=== PATIENT | male | born 1965 | race Caucasian/White ===

== ENCOUNTER 2018-03-11 09:17 | Emergency (ER) | payer BC, OTHER ==
[2018-03-11 09:23] VITALS: BP 130/89; PULSE 76; TEMP 98.7; BMI 28.8
--- NOTE | 2018-03-11 09:36 | PDOC ---
History of Present Illness - General Chief Complaint: Abscess Boil Stated Complaint: ABSCESS BOIL Time Seen by Provider: 03/11/18 09:27 History Source: Patient Exam Limitations: No Limitations - History of Present Illness Initial Comments: 03/11/18 09:34 52 yr male with history of high cholesterol presents to ER with abscess to right buttock on and off since November. Pt was on many antibiotics with some relief. no fever no chills. pt works construction. Past History - Past Medical History Allergies/Adverse Reactions: Allergies Allergy/AdvReac Type Severity Reaction Status Date / Time No Known Allergies Allergy Verified 03/11/18 09:19 Home Medications: Ambulatory Orders NK [No Known Home Medication] 03/11/18 Anemia: No Asthma: No Cancer: No Cardiac Disorders: No CVA: No COPD: No CHF: No Dementia: No Diabetes: No GI Disorders: No Disorders: No HTN: No Hypercholesterolemia: Yes Liver Disease: No Seizures: No Thyroid Disease: No - Surgical History Abdominal Surgery: No Appendectomy: No Cardiac Surgery: No Cholecystectomy: No Lung Surgery: No Neurologic Surgery: No Orthopedic Surgery: No - Suicide/Smoking/Psychosocial Hx Smoking History: Never smoked Have you smoked in the past 12 months: No Information on smoking cessation initiated: No Hx Alcohol Use: No Drug/Substance Use Hx: No Substance Use Type: None Hx Substance Use Treatment: No Review of Systems - Review of Systems Able to Perform ROS?: Yes Is the patient limited Turkish proficient: No Integumentary: Yes: Symptoms Reported *Physical Exam - Vital Signs Last Vital Signs Temp Pulse Resp BP Pulse Ox 98.7 F 76 16 130/89 98 03/11/18 09:19 03/11/18 09:19 03/11/18 09:19 03/11/18 09:19 03/11/18 09:19 - Physical Exam General Appearance: Yes: Nourished, Appropriately Dressed HEENT: positive: EOMI, ANA CRISTINA Integumentary: positive: Other (right buttock inner aspect with drainaing 1cm abscess no surrounding erythema, no induration) Medical Decision Making - Medical Decision Making 03/11/18 16:27 cc: draining abscess / questionable anal fistula to the right buttock on and off for 3 months no fever no chills no abd pain pt here to see wound culture obtained pt transfered to main ER to be seen by . 03/11/18 16:29 *DC/Admit/Observation/Transfer Diagnosis at time of Disposition: Anal fistula - Discharge Dispostion Disposition: HOME Condition at time of disposition: Stable - Referrals Referrals: Laz Guardado MD [Staff Physician] - Ruddy Rodriguez MD [Primary Care Provider] - - Patient Instructions Printed Discharge Instructions: DI for Anal Fistula Additional Instructions: Please follow up with Dr. Guardado as an outpatient. - Post Discharge Activity
--- NOTE | 2018-03-11 10:04 | PDOC ---
History of Present Illness - General Chief Complaint: Abscess Boil Stated Complaint: ABSCESS BOIL Time Seen by Provider: 03/11/18 09:27 History Source: Patient Exam Limitations: No Limitations - History of Present Illness Initial Comments: 03/11/18 09:53 52 year old M c/ hx of HLD presents with "boil" on buttocks since November 2017. Dr. Laz Guardado (surgeon) here to evaluate patient at request of family member. Pt noted to have a continually draining abscess hear ~2 o'clock position ~2x2 cm. No fevers, chills. Able to move his bowels without difficulty. Past History - Past Medical History Allergies/Adverse Reactions: Allergies Allergy/AdvReac Type Severity Reaction Status Date / Time No Known Allergies Allergy Verified 03/11/18 09:19 Home Medications: Ambulatory Orders NK [No Known Home Medication] 03/11/18 Anemia: No Asthma: No Cancer: No Cardiac Disorders: No CVA: No COPD: No CHF: No Dementia: No Diabetes: No GI Disorders: No Disorders: No HTN: No Hypercholesterolemia: Yes Liver Disease: No Seizures: No Thyroid Disease: No - Surgical History Abdominal Surgery: No Appendectomy: No Cardiac Surgery: No Cholecystectomy: No Lung Surgery: No Neurologic Surgery: No Orthopedic Surgery: No - Suicide/Smoking/Psychosocial Hx Smoking History: Never smoked Have you smoked in the past 12 months: No Information on smoking cessation initiated: No Hx Alcohol Use: No Drug/Substance Use Hx: No Substance Use Type: None Hx Substance Use Treatment: No Review of Systems - Review of Systems Able to Perform ROS?: Yes Comments:: 03/11/18 10:10 GENERAL/CONSTITUTIONAL: No fever or chills. No weakness. HEAD, EYES, EARS, NOSE AND THROAT: No change in vision. No ear pain or discharge. No sore throat. CARDIOVASCULAR: No chest pain or shortness of breath. RESPIRATORY: No cough, wheezing, or hemoptysis. GASTROINTESTINAL: No nausea, vomiting, diarrhea or constipation. +buttocks abscess GENITOURINARY: No dysuria, frequency, or change in urination. MUSCULOSKELETAL: No joint or muscle swelling or pain. No neck or back pain. SKIN: No rash NEUROLOGIC: No headache, vertigo, loss of consciousness, or change in strength/ sensation. ENDOCRINE: No increased thirst. No abnormal weight change. HEMATOLOGIC/LYMPHATIC: No anemia, easy bleeding, or history of blood clots. ALLERGIC/IMMUNOLOGIC: No hives or skin allergy. *Physical Exam - Vital Signs Last Vital Signs Temp Pulse Resp BP Pulse Ox 98.7 F 76 16 130/89 98 03/11/18 09:19 03/11/18 09:19 03/11/18 09:19 03/11/18 09:19 03/11/18 09:19 - Physical Exam Comments: 03/11/18 10:14 GENERAL: Awake, alert, and fully oriented, in no acute distress HEAD: No signs of trauma EYES: EOMI, sclera anicteric, conjunctiva clear ENT: Auricles normal inspection, hearing grossly normal, nares patent, Moist mucosa NECK: Normal ROM, supple RECTAL: Small 2x2 cm boil ~2 o'clock. DANIEL performed by Dr. Guardado. He reports feeling a palpable cord. EXTREMITIES: Normal range of motion, no edema. No clubbing or cyanosis. No cords, erythema, or tenderness NEUROLOGICAL: Cranial nerves II through XII grossly intact. Normal speech, normal gait SKIN: Warm, Dry, normal turgor, no rashes or lesions noted. Medical Decision Making - Medical Decision Making 03/11/18 10:15 Vital Signs Temp Pulse Resp BP Pulse Ox 98.7 F 76 16 130/89 98 03/11/18 09:19 03/11/18 09:19 03/11/18 09:19 03/11/18 09:19 03/11/18 09:19 Impression: Anal-rectal fistula. Case discussed with Dr. Guardado. Pt will followup as an outpatient for outpatient procedure. Pt feels comfortable with plan. *DC/Admit/Observation/Transfer Diagnosis at time of Disposition: Anal fistula - Discharge Dispostion Disposition: HOME Condition at time of disposition: Stable Decision to Admit order: No - Referrals Referrals: Laz Guardado MD [Staff Physician] - Ruddy Rodriguez MD [Primary Care Provider] - - Patient Instructions Printed Discharge Instructions: DI for Anal Fistula Additional Instructions: Please follow up with Dr. Guardado as an outpatient. - Post Discharge Activity
--- NOTE | 2018-03-11 10:25 | CONSULT ---
- Consultation REQUESTING PROVIDER: Arline WILD CONSULT REQUEST: We have been asked to surgically evaluate this patient for ( specify). PCP:Tc Rodriguez HISTORY OF PRESENT ILLNESS: CTSP for evaluation and management of a draining and painful lesion around his rectum; he has had this since at least 11/25 and possibly before; it heals and opens and drains but does not completely resolve; he has NOC; he denies any other GI/ problem. PMHx: none PSHx: none Home Medications Medication Instructions Recorded NK [No Known Home Medication] 03/11/18 Allergies Allergy/AdvReac Type Severity Reaction Status Date / Time No Known Allergies Allergy Verified 03/11/18 09:19 REVIEW OF SYSTEMS: CONSTITUTIONAL: Absent: fever, chills, diaphoresis, generalized weakness, malaise, loss of appetite, weight change CARDIOVASCULAR: Absent: chest pain, syncope, palpitations, irregular heart rate, lightheadedness , peripheral edema RESPIRATORY: Absent: cough, shortness of breath, dyspnea with exertion, wheezing, stridor, hemoptysis GASTROINTESTINAL: Absent: abdominal pain, abdominal distension, nausea, vomiting, diarrhea, constipation, melena, hematochezia. Present: rectal pain and drainage and discomfort GENITOURINARY: Absent: dysuria, frequency, urgency, hesitancy, hematuria, flank pain, genital pain MUSCULOSKELETAL: Absent: myalgia, arthralgia, joint swelling, back pain, neck pain SKIN: Absent: rash, itching, pallor HEMATOLOGIC/IMMUNOLOGIC: Absent: easy bleeding, easy bruising, lymphadenopathy NEUROLOGIC: Absent: headache, focal weakness, paresthesias, dizziness, unsteady gait, seizure, mental status changes, bladder or bowel incontinence PSYCHIATRIC: Absent: anxiety, depression, suicidal or homicidal ideation, hallucinations. No tobacco or drug use. PHYSICAL EXAM: GENERAL: Awake, alert, and fully oriented, in no acute distress. HEAD: Normal with no signs of trauma. EYES: PERRL, sclera anicteric, conjunctiva clear. NECK: Normal ROM, supple without lymphadenopathy, JVD, or masses. ABDOMEN: Soft, nontender, not distended, normoactive bowel sounds, no guarding, no rebound, no masses. No organomegaly. MUSCULOSKELETAL: Normal ROM at all joints. No bony deformities or tenderness. No CVA tenderness. UPPER EXTREMITIES: 2+ pulses, warm, well-perfused. No cyanosis. Cap refill <2 seconds. No peripheral edema. LOWER EXTREMITIES: 2+ pulses, warm, well-perfused. No calf tenderness. No peripheral edema. NEUROLOGICAL: Normal speech, gait not observed. PSYCH: Cooperative. Good eye contact. Appropriate mood and affect. SKIN: Warm, dry, normal turgor, no rashes or lesions noted. RECTAL: GST; no mass; Guaic negative brown stool; evidence of fistula in ano; no fissure. Vital Signs Temperature 98.7 F 03/11/18 09:19 Pulse Rate 76 03/11/18 09:19 Respiratory Rate 16 03/11/18 09:19 Blood Pressure 130/89 03/11/18 09:19 O2 Sat by Pulse Oximetry (%) 98 03/11/18 09:19 IMP: fistula in ano PLAN: Discussion of outpatient EUA/rigid proctosigmoidoscopy/fistulotomy/ fistulectomy and possible seton placement as definitive tx.; possible incontinence temporary and/or permanent discussed; he wishes to proceed; surgery will be scheduled. A/a/u by the patient and his . Laz Guardado MD FACS
== END 2018-03-11 10:15 | disposition home or self-care (01) ==
LOC: JER 09:17 → JERFT 09:17 → JER 10:15
DX: K60.3 Anal fistula (principal); E78.00 Pure hypercholesterolemia, unspecified
CPT/HCPCS: 87070; 87077; 87186; 87205; 99281-25

== ENCOUNTER 2018-03-22 05:06 | Day surgery (SDC) | payer BC, OTHER ==
[2018-03-19 15:24] VITALS: BMI 30.2
--- NOTE | 2018-03-22 13:10 | HP ---
History & Physical Update - History History: No Change - Physical Physical: No Change - Assessment Assessment: No Change - Plan Plan: No Change (see my consult done in the ER 03/11/18)
[2018-03-22] MEDS ORDERED: fentaNYL CITRATE 250 MCG/5 ML VIAL ONE (13:36)
[2018-03-22] MEDS ORDERED: PROPOFOL 20 ML ONE ×2 (13:36)
[2018-03-22] MEDS ORDERED: LIDOCAINE HCL/PF 2% SDV 5ML VIAL ONE (13:36)
[2018-03-22] MEDS ORDERED: MIDAZOLAM HCL 2 MG/2 ML SINGLE DOSE VIAL ONE ×2 (13:37)
[2018-03-22] MEDS ORDERED: DESFLURANE GAS 240 ML BOTTLE IH ONE (14:04)
[2018-03-22] MEDS ORDERED: BENZOIN TINCTURE SWABSTICK TP ONE (14:06)
[2018-03-22] MEDS ORDERED: CLINDAMYCIN PHOSPHATE 600 MG/4 ML VIAL ONE (14:19)
[2018-03-22] MEDS ORDERED: CLINDAMYCIN 600 MG PREMIX BAG IVPB ONE (14:37)
[2018-03-22] MEDS ORDERED: KETOROLAC TROMETHAMINE 30 MG/1 ML VIAL ONE (15:01)
[2018-03-22] MEDS ORDERED: ACETAMINOPHEN INJECTION 100 ML IVPB ONE (15:02)
--- NOTE | 2018-03-22 15:22 | OP ---
Operative Note - Note: Operative Date: 03/22/18 Pre-Operative Diagnosis: fistula in ano Operation: exam sai anesthesia/rigid proctosigmoidoscopy/anal fistulotomy Findings: intersphincteric fistula in ano starting at ~ 4 o'clock in the prone jackknife position Post-Operative Diagnosis: Same as Pre-op Surgeon: Laz Guardado Broadcast Checker: Jignesh Lobo Anesthesia: General Specimens Removed: none Estimated Blood Loss (mls): 15
[2018-03-22] MEDS ORDERED: ONDANSETRON 4 MG/2 ML VIAL IVPUSH PRN (15:41)
[2018-03-22] MEDS ORDERED: oxyCODONE HCL 5 MG TABLET PO PRN ×2 (15:41)
--- NOTE | 2018-03-22 15:50 | SURG ---
Surgery Ccna Note Ccna: Jignesh Lobo PA-C Date of Service: 03/22/18 Diagnosis: fistula in ano Procedure: exam under anesthesia/rigid proctosigmoidoscopy/anal fistulotomy I was present for the entirety of the operative procedure. For further detail, please refer to operative report.
[2018-03-22] MEDS ORDERED: LACTATED RINGERS SOLUTION 1,000 ML IV SCH (16:00)
[2018-03-22 17:49] VITALS: BP 107/72; PULSE 78; TEMP 98.3
--- NOTE | 2018-03-25 13:40 | OP ---
DATE OF OPERATION: 03/22/2018 PREOPERATIVE DIAGNOSIS: Fistula in ano. POSTOPERATIVE DIAGNOSIS: Fistula in ano. PROCEDURE: Exam under anesthesia, rigid proctosigmoidoscopy, and anal fistulotomy. SURGEON: Laz Guardado MD DOUGH MIXER HELPER: Jignesh Lobo PA-C ANESTHESIA: General. ESTIMATED BLOOD LOSS: 15 mL. REPLACEMENTS: Crystalloid. DRAINS: None. SPECIMENS: None. OPERATIVE FINDINGS: There was an entero sphincteric fistula in ano starting at approximately 4 o'clock with the patient in the prone jackknife position. The rest of the findings were unremarkable. DESCRIPTION OF PROCEDURE: The patient was placed on the operating table in the prone jackknife position after endotracheal intubation and administration of general anesthesia on a stretcher in the supine position. The patient was appropriately padded and the buttocks taped on both sides. A time-out was taken and then rigid proctosigmoidoscopy was carried out, which was unremarkable to 20 cm. Next, the perianal area was prepped with Betadine and draped in a sterile fashion. An exam carried out showing a fistula starting at approximately the 4 o'clock position of the anoderm in the prone jackknife position extending into the anorectal canal where there was an internal opening. This was injected with a peroxide solution and the internal opening visualized. Next, a crypt hook was placed in the fistula from the internal opening to the external and then a grooved director placed in the fistulous tract. Using electrocautery, the entero sphincteric subcutaneous fistula was divided using electrocautery. Granulation tissue present in the fistulous tract was curetted. The operative field was irrigated, and hemostasis secured. Then a dressing consisting of Xeroform and Surgicel on a roll was placed in the rectum and covering the anus. A dry sterile dressing and a Cheney shield were placed and the procedure terminated at this point and the patient aroused from general anesthesia and transferred to the post anesthesia care unit in stable condition awake and alert. I, Laz Guardado, was physically present in the operating room from the time the patient was placed on the operating room table until he was transferred to the post anesthesia care unit in [place]. MD GENO Mejia/[id number] MTDD
== END 2018-03-22 17:45 | disposition home or self-care (01) ==
LOC: JASU-SURG 05:06
PROVIDERS: ATTEND Surgery
PROC: 0DJD8ZZ Inspection of Lower Intestinal Tract, Via Natural or Artificial Opening Endoscopic (ICD-10-PCS; 2018-03-22)
PROC: 0D8R0ZZ Division of Anal Sphincter, Open Approach (ICD-10-PCS; principal; 2018-03-22 12:00)
DX: K60.3 Anal fistula (principal)
CPT/HCPCS: 94760; J0131